=== PATIENT | male | born 1955 | race Caucasian/White ===

== ENCOUNTER 2018-05-06 19:31 | Emergency (ER) | payer SELFPAY ==
--- NOTE | 2018-05-06 19:41 | EDPHY ---
H & P Stated Complaint: M1 Source: Patient Exam Limitations: Clinical condition - Personal History Current Tetanus/Diphtheria Vaccine: Yes Current Tetanus Diphtheria and Acellular Pertussis (TDAP): Yes - Medical/Surgical History Hx Asthma: No Hx Chronic Respiratory Disease: No Hx Diabetes: No Hx Cardiac Disease: No Hx Renal Disease: No Hx Cirrhosis: No Hx Alcoholism: No Hx HIV/AIDS: No Hx Splenectomy or Spleen Trauma: No Other PMH: denies medical or surgical hx - Social History Smoking Status: Never smoked Time Seen by Provider: 05/06/18 19:40 HPI/ROS: HPI: This is a 63-year-old male who presents with Chief Complaint: M1 hold Location: psych Quality:M1 hold Duration: Today Signs and Symptoms: no auditory and visual command hallucinations, + suicidal ideation with a plan, no homicidal ideation, no paranoia Timing: Unknown Severity: Moderate to severe Context: Patient presents on M1 hold by [facility] secondary to his brother and co-worker becoming concerned over his steadily declining behavior over the last several years. 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 He has been making comments to his co-worker as well as to family that he wants to end his life and to commit suicide. Patient has no prior history of psychiatric illnesses. He does drink alcohol daily. Admits to drinking champagne today and last drink was around 2:00 p.m Has never had inpatient psychiatric admission or prior psychiatric diagnoses. Denies history of alcohol withdrawal seizures. His brother is currently on a plane traveling to [place], [place]. He Has a girlfriend. He keeps repeating that this is a misunderstanding and that he was just joking around. Modifying Factors: None Comment: ROS: see HPI Constitutional: No fever, no chills, no weight loss Eyes: No blurred vision Respiratory: No shortness of breath, no cough Cardiovascular: No chest pain Gastrointestinal: No nausea, no vomiting, no diarrhea Genitourinary: No dysuria Extremities: No myalgias Neurologic: No weakness, no numbness Skin: No rashes Hematologic: No bruising, no bleeding MEDICAL/SURGICAL/SOCIAL HISTORY: Medical history: Alcoholism Surgical history: Denies Social history: Works at [employer]. Nonsmoker. Girlfriend. Family history noncontributory. CONSTITUTIONAL: Disheveled adult male, awake and alert, no obvious distress HEENT: Atraumatic and normocephalic, PERRL, EOMI. Nares patent; no rhinorrhea; no nasal mucosal edema. Tympanic membranes clear. Oropharynx clear, no exudate and moist pink mucosa. Airway patent. No lymphadenopathy. No meningismus. Cardiovascular: Normal S1/S2, regular rate, regular rhythm, without murmur rub or gallop. PULMONARY/CHEST: Symmetrical and nontender. Clear to auscultation bilaterally. Good air movement. No accessory muscle usage. ABDOMEN: Soft, nondistended, nontender, no rebound, no guarding, no peritoneal signs, no masses or organomegaly. No CVAT. EXTREMITIES: 2/2 pulses, strength 5/5, no deformities, no clubbing, no cyanosis or edema. NEUROLOGICAL: no focal neuro deficits. GCS 15. SKIN: Warm and dry, no erythema. no rash. Good capillary refill. PSYCH: Fair eye contact, + flight of ideas, organized thought process, fair insight and judgment, no auditory and visual command hallucinations, + suicidal ideation with a plan, no homicidal ideation, no paranoia (Rachel Tolbert) Constitutional: Initial Vital Signs Temperature (C) 36.8 C 05/06/18 19:38 Heart Rate 98 05/06/18 19:38 Respiratory Rate 18 05/06/18 19:38 Blood Pressure 145/97 H 05/06/18 19:38 O2 Sat (%) 92 05/06/18 19:38 O2 Delivery Mode Room Air Allergies/Adverse Reactions: No Known Allergies Allergy (Unverified 05/06/18 19:40) Medical Decision Making ED Course/Re-evaluation: 1944: Agree with M1 hold. Labs and urine drug screen. Patient currently calm and cooperative and no chemical interventions required. 1957: Breathalyzer is 0.195 2021: Labs reviewed; grossly unremarkable. Ethanol is 272. We will have to wait until the morning for [facility]LC to evaluate the patient. 0100: End of shift. Signed over to Dr. Linares pending urine sample, mental health evaluation in the morning and final disposition. This patient was seen under the supervision of my secondary supervising physician. I evaluated care for this patient independently. Discussed this patient with Dr. Vang who did not see the patient. (Rachel Tolbert) 6:00 a.m.- Patient has been stable throughout my shift. UA was obtained which is negative. We are awaiting mental health evaluation pending the patient's sobriety. We will breathalyzer him this morning. The case will be signed out to the oncoming provider Dr. Hendrickson. (Katie Linares) Differential Diagnosis: Differential diagnosis includes but is not limited to functional depression, situational depression, alcohol intoxication, suicidal ideation, bipolar disorder. (Rachel Tolbert) Other Provider: Patient has been accepted to [facility] and will be transferred. (Benigno Hendrickson) - Data Points Laboratory Results: Laboratory Results 05/06/18 19:45 05/06/18 19:45 05/07/18 05:00 Urine Opiates Screen NEGATIVE (NEGATIVE) Urine Barbiturates NEGATIVE (NEGATIVE) Ur Phencyclidine Scrn NEGATIVE (NEGATIVE) Ur Amphetamine Screen NEGATIVE (NEGATIVE) U Benzodiazepines Scrn NEGATIVE (NEGATIVE) Urine Cocaine Screen NEGATIVE (NEGATIVE) U Marijuana (THC) Screen NEGATIVE (NEGATIVE) Medications Given: Discontinued Medications Chlordiazepoxide HCl (Librium) 25 mg PO EDNOW ONE Stop: 05/07/18 09:20 Last Admin: 05/07/18 09:24 Dose: 25 mg Lorazepam (Ativan) 1 mg PO EDNOW ONE Stop: 05/07/18 09:20 Last Admin: 05/07/18 09:24 Dose: 1 mg Departure - Departure Disposition: Other Psych, Not [facility] Clinical Impression: Verbalizes suicidal thoughts Alcohol intoxication Qualifiers: Complication of substance-induced condition: uncomplicated Qualified Code(s): F10.920 - Alcohol use, unspecified with intoxication, uncomplicated Condition: Good Referrals: NONE *PRIMARY CARE P,. [Primary Care Provider] - As per Instructions
[2018-05-06 19:59] LABS: PLATELET COUNT 182 10^3/uL (150-400)
[2018-05-07] MEDS ORDERED: LORazepam 1 MG TAB PO ONE (09:19)
[2018-05-07] MEDS ORDERED: chlordiazePOXIDE 25 MG CAP PO ONE (09:19)
[2018-05-07 13:08] VITALS: BP 120/89
== END 2018-05-07 13:10 ==
DX: R45.851 Suicidal ideations (principal); F10.920 Alcohol use, unspecified with intoxication, uncomplicated
CPT/HCPCS: 80305; G0480

== ENCOUNTER 2018-06-27 11:39 | Emergency (ER) | payer MEDICAID, OTHER ==
[2018-06-27 11:46] VITALS: BP 146/99
== END 2018-06-27 13:21 | disposition left against medical advice (07) ==
DX: Z53.21 Procedure and treatment not carried out due to patient leaving prior to being seen by health care provider (principal)